=== PATIENT | male | born 1975 | race Caucasian/White ===

== ENCOUNTER → 2024-01-25 06:20 | Day surgery (SDC) | payer OTHER, SELFPAY | LOC: GI 06:20 | PROVIDERS: ATTENDING PHYSICIAN Internal Medicine | DX: Z12.11 Encounter for screening for malignant neoplasm of colon (principal); K44.9 Diaphragmatic hernia without obstruction or gangrene; K22.89 Other specified disease of esophagus; R12 Heartburn; K29.50 Unspecified chronic gastritis without bleeding; K20.90 Esophagitis, unspecified without bleeding; Z13.810 Encounter for screening for upper gastrointestinal disorder | CPT/HCPCS: 43239; G0121; 88305; 88342 ==